=== PATIENT | female | born 1990 | race American Indian/Alaskan Native ===

== ENCOUNTER 2016-10-26 18:54 | Emergency (ER) | payer MEDICAID ==
[2016-10-26 19:02] VITALS: BP 161/65
== END 2016-10-26 22:35 | disposition left against medical advice (07) ==
LOC: ED 18:54
DX: M25.559 Pain in unspecified hip (principal); Z53.21 Procedure and treatment not carried out due to patient leaving prior to being seen by health care provider

== ENCOUNTER 2016-10-27 16:46 | Emergency (ER) | payer MEDICAID ==
[2016-10-27 17:35] VITALS: BP 140/81
--- NOTE | 2016-10-27 22:44 | Emergency Department Report ---
Entered by SAMMY CHACKO, acting as scribe for BART NESS NP. ED Back Pain/Injury HPI - General Chief Complaint: Urogenital-Female Stated Complaint: BUTTOCK PAIN Time Seen by Provider: 10/27/16 20:05 Source: patient Limitations: No Limitations - History of Present Illness Initial Comments: This is a 25 year old female nontoxic, well nourished in appearance, no acute signs of distress, presents to ED with c/o pain to her left buttock since 2016. Patient reports she had a shot from [facility] for constipation and felt sore since then. Patient states she has lower back pain that radiates to buttocks, hip and LE and describes pain as aching. Patient notes she went a hospital in [place] for similar symptoms and prescribed her with Dicyclomine 20 mg. Patient stated she was seen in an urgent care that was diagnosed with Lumbar radiculopathy. Patient denies fever, bladder or bowel instability, Chest pain, shortness of breath, numbness, tingling, chills, cough, chest pain, SOB, abd pain, nausea, or vomiting. Patient denies any trauma to the region. NKDA. MART Complaint: back pain -: month(s) (10/02/2016) Similar Symptoms Previously: Yes Place: home Radiation: buttocks, right leg Severity: moderate Severity scale (0 -10): 4 Quality: aching Consistency: constant Improves With: none Worsens With: none Context: unknown Associated Symptoms: denies other symptoms. denies: confusion, weakness, chest pain, numbness, difficulty walking, cough, difficulty urinating, diaphoresis, incontinence, fever/chills, headaches, abdominal pain, loss of appetite, malaise , nausea/vomiting, rash, seizure, shortness of breath, syncope - Related Data Previous Rx's Medication Instructions Recorded Last Taken Type Acetaminophen/Codeine 1 tab PO Q6H PRN #12 tab 12/27/13 Unknown Rx [Acetaminophen-Codeine #3 TAB] Naproxen [Naprosyn] 500 mg PO BID #20 tablet 12/27/13 Unknown Rx methOCARBAMOL [Robaxin] 500 mg PO BID #20 tab 12/27/13 Unknown Rx Naproxen [Naprosyn TAB] 500 mg PO BID #30 tablet 10/27/16 Unknown Rx predniSONE [Deltasone] 20 mg PO BID #10 tab 10/27/16 Unknown Rx Allergies Allergy/AdvReac Type Severity Reaction Status Date / Time No Known Allergies Allergy Verified 10/27/16 17:30 ED Review of Systems Comment: All other systems reviewed and negative Constitutional: denies: chills, fever, weakness Eyes: denies: eye pain, eye discharge, vision change ENT: denies: ear pain, throat pain Respiratory: denies: cough, shortness of breath, wheezing Cardiovascular: denies: chest pain, palpitations Endocrine: no symptoms reported Gastrointestinal: denies: abdominal pain, nausea, vomiting, diarrhea Genitourinary: denies: urgency, dysuria, frequency, hematuria, discharge Musculoskeletal: back pain. denies: joint swelling, arthralgia Skin: denies: rash, lesions Neurological: denies: headache, weakness, numbness, paresthesias Psychiatric: denies: anxiety, depression Hematological/Lymphatic: denies: easy bleeding, easy bruising ED Past Medical Hx - Past Medical History Previous Medical History?: Yes Hx Psychiatric Treatment: Yes Additional medical history: miscarriage 2011. Anxiety - Surgical History Additional Surgical History: cyst removal from over2011 - Social History Smoking Status: Never Smoker Substance Use Type: None - Medications Home Medications: Home Medications Medication Instructions Recorded Confirmed Last Taken Type Acetaminophen/Codeine 1 tab PO Q6H PRN #12 tab 12/27/13 Unknown Rx [Acetaminophen-Codeine #3 TAB] Naproxen [Naprosyn] 500 mg PO BID #20 tablet 12/27/13 Unknown Rx methOCARBAMOL [Robaxin] 500 mg PO BID #20 tab 12/27/13 Unknown Rx Naproxen [Naprosyn TAB] 500 mg PO BID #30 tablet 10/27/16 Unknown Rx predniSONE [Deltasone] 20 mg PO BID #10 tab 10/27/16 Unknown Rx ED Physical Exam - General Limitations: No Limitations General appearance: alert, in no apparent distress - Head Head exam: Present: atraumatic, normocephalic - Eye Eye exam: Present: normal appearance, PERRL, EOMI. Absent: scleral icterus, conjunctival injection, nystagmus, periorbital swelling, periorbital tenderness - ENT ENT exam: Present: normal exam, normal orophraynx, mucous membranes moist, TM's normal bilaterally, normal external ear exam - Neck Neck exam: Present: normal inspection, full ROM. Absent: tenderness, meningismus, lymphadenopathy, thyromegaly - Respiratory Respiratory exam: Present: normal lung sounds bilaterally. Absent: respiratory distress, wheezes, rales, rhonchi, stridor, chest wall tenderness, accessory muscle use, decreased breath sounds, prolonged expiratory - Cardiovascular Cardiovascular Exam: Present: regular rate, normal rhythm, normal heart sounds. Absent: bradycardia, tachycardia, irregular rhythm, systolic murmur, diastolic murmur, rubs, gallop - GI/Abdominal GI/Abdominal exam: Present: soft, normal bowel sounds. Absent: distended, tenderness, guarding, rebound, rigid, diminished bowel sounds - Rectal Rectal exam: Present: deferred - Extremities Exam Extremities exam: Present: normal inspection, full ROM, normal capillary refill. Absent: tenderness, pedal edema, joint swelling, calf tenderness - Back Exam Back exam: Present: normal inspection, full ROM, paraspinal tenderness (lumbar region). Absent: tenderness, CVA tenderness (R), CVA tenderness (L), muscle spasm, vertebral tenderness, rash noted - Expanded Back Exam Expanded Back exam: Present: normal rectal tone. Absent: saddle anesthesia Back exam: Negative Straight Leg Raising: Left, Right - Neurological Exam Neurological exam: Present: alert, oriented X3, CN II-XII intact, normal gait, reflexes normal - Psychiatric Psychiatric exam: Present: normal affect, normal mood - Skin Skin exam: Present: warm, dry, intact, normal color. Absent: rash ED Course Vital Signs 10/27/16 17:30 Temperature 98.6 F Pulse Rate 87 Respiratory 18 Rate Blood Pressure 140/81 O2 Sat by Pulse 99 Oximetry - Reevaluation(s) Reevaluation #1: 10/27/16 21:17 Patient is able to speak in full sentences with no signs of distress. ED Disposition Clinical Impression: Lumbar radiculopathy Low back strain Qualifiers: Encounter type: initial encounter Qualified Code(s): S39.012A - Strain of muscle, fascia and tendon of lower back, initial encounter Sciatica Qualifiers: Laterality: unspecified laterality Qualified Code(s): M54.30 - Sciatica, unspecified side Disposition: - TO HOME OR SELFCARE Is pt being admited?: No Does the pt Need Aspirin: No Condition: Stable Instructions: Sciatica (ED), Lumbar Radiculopathy (ED), Naproxen (By mouth), Prednisone (By mouth) Additional Instructions: follow-up with your primary care doctor in 3-5 days or if symptoms worsen such as bladder or bowel stability, chest pain, short of breath, numbness or tingling sensation in extremities, headache, dizziness, visual changes, nausea vomiting, or abdominal pain, return back to emergency room as was possible. Prescriptions: Naproxen [Naprosyn TAB] 500 mg PO BID #30 tablet predniSONE [Deltasone] 20 mg PO BID #10 tab Referrals: PRIMARY CARE, [Primary Care Provider] - 3-5 Days POONAM VARGAS MD [Staff Physician] - 3-5 Days [facility] [Outside] - 3-5 Days [facility] [Outside] - 3-5 Days Forms: Work/School Release Form(ED) This documentation as recorded by the RICCO zhang PEARL,accurately reflects the service I personally performed and the decisions made by ,BART NESS, CONTROL OPERATOR.
== END 2016-10-27 22:00 | disposition home or self-care (01) ==
LOC: ED 16:46
DX: M54.16 Radiculopathy, lumbar region (principal); S39.012A Strain of muscle, fascia and tendon of lower back, initial encounter; M54.30 Sciatica, unspecified side; X58.XXXA Exposure to other specified factors, initial encounter; Y93.89 Activity, other specified; Y92.89 Other specified places as the place of occurrence of the external cause; Y99.8 Other external cause status
CPT/HCPCS: 99282

== ENCOUNTER 2018-01-04 02:39 | Outpatient (CLI) | payer MEDICAID ==
[2018-01-04 04:30] VITALS: BP 117/61
[2018-01-04 04:49] LABS: Amorphous Crystals,Urine 1+; Bilirubin,Urine NEG (Negative); Blood,Urine NEG (Negative); Color,Urine Yellow (Yellow); Mucus,Urine FEW /HPF; Protein,Urine <15 mg/dL mg/dL (Negative)
[2018-01-04 04:55] LABS: Bacteria,Urine 1+ /HPF (Negative); Urobilinogen,Urine < 2.0 mg/dL (<2.0)
== END 2018-01-04 05:15 | disposition home or self-care (01) ==
LOC: TRG 02:39
PROVIDERS: ATTEND Obstetrics & Gynecology
DX: O47.03 False labor before 37 completed weeks of gestation, third trimester (principal); Z3A.28 28 weeks gestation of pregnancy
CPT/HCPCS: 81001

== ENCOUNTER 2018-03-02 01:12 | Outpatient (CLI) | payer MEDICAID ==
[2018-03-02] MEDS ORDERED: LACTATED RINGERS 1,000 ML IV ONE (02:33)
[2018-03-02 02:54] LABS: Bacteria,Urine 1+ /HPF (Negative); Bilirubin,Urine NEG (Negative); Blood,Urine NEG (Negative); Color,Urine Yellow (Yellow); Protein,Urine <15 mg/dL mg/dL (Negative); Urobilinogen,Urine < 2.0 mg/dL (<2.0)
[2018-03-02] MEDS ORDERED: TYLENOL PO ONE (03:21)
[2018-03-02] MEDS ORDERED: TAMIFLU PO ONE (05:29)
[2018-03-02 08:42] VITALS: BP 113/73
== END 2018-03-02 05:53 | disposition home or self-care (01) ==
LOC: TRG 01:12
PROVIDERS: ATTEND Obstetrics & Gynecology
DX: O42.913 Preterm premature rupture of membranes, unspecified as to length of time between rupture and onset of labor, third trimester (principal); O47.03 False labor before 37 completed weeks of gestation, third trimester; Z87.891 Personal history of nicotine dependence; Z3A.36 36 weeks gestation of pregnancy
CPT/HCPCS: 59025; 81001; 87400; 96360; J7120